=== PATIENT | female | born 1985 ===

== ENCOUNTER 2023-03-05 19:32 | Emergency (ER) | payer SELFPAY ==
[2023-03-05 19:42] VITALS: BMI 23.3
[2023-03-05 20:06] LABS: Basophils % 0.3 %; Eosinophils # 0.1 10^3/uL (0.0-0.8); Hematocrit 40.1 % (36-47); Lymphocytes # 3.9 10^3/uL (0.8-4.8); Lymphocytes % 28.9 %; Mean Corpuscular HGB Conc 33.9 g/dL (30-55); Mean Corpuscular Volume 88.5 fl (85-98); Mean Platelet Volume 10.1 fL (7.4-10.4); Monocytes # 0.7 10^3/uL (0.2-0.9); Monocytes % 5.4 %; Neutrophils # 8.69 10^3/uL (1.8-7.7); Neutrophils % 64.1 %; Nucleated Red Blood Cells % 0 %; Platelet Count 286 10^3/cmm (157-399); Red Blood Count 4.53 10^6/uL (3.85-5.65); Red Cell Distribution Width 11.9 % (12.1-15.1); White Blood Count 13.54 10^3/uL (3.29-11.43)
--- NOTE | 2023-03-05 20:19 | PC.NURSE ---
Dr. Lozano spoke with the pt. and at this time we are going to hold on changing her out into psych scrubs.
--- NOTE | 2023-03-05 20:20 | ED.C_ITS ---
HPI - Psych General: Chief Complaint: Psychiatric Symptoms Stated Complaint: SI,anxiety Time Seen by Provider: 03/05/23 19:43 History of Present Illness: Patient presents to the ER with complaints of suicidal ideation and anxiety. Patient is from [facility] and has been unable to get her medicine which sounds like Prozac and Klonopin for some time. Patient has been on varying doses of Prozac so she has not been totally out but she has been out of the [facility] medicine for some time. Patient states she has seen multiple telemedicine providers but they have not prescribed to her. Patient does states she has had suicidal thoughts but has no active plan. Upon further talking to the patient patient would just like a refill of her clonazepam and is not interested in inpatient treatment or trial of any other medicine. Review of Systems General: Reports: 10 or more systems reviewed and unremarkable except in HPI and below [facility] ED Female Reproductive History: Date of last menstrual period: 02/27/23 Physical Exam Const: COMMON NORMALS: no acute distress, average body habitus, patient or iented x3, no limitations, healthy appearing, alert and well nourished HENMT: COMMON NORMALS: normocephalic, atraumatic, hearing grossly normal bi laterally, external ears normal, Normal external nose present and moist oral mucous membranes HEAD & SCALP: normocephalic and atraumatic NOSE: Normal external nose present EXTERNAL EAR: Yes external ears normal Eye: COMMON NORMALS: Equal, round and reactive pupils present, EOMs intact bilaterally, conjunctivae normal and no scleral icterus CONJUNCTIVA: Yes conjunctivae normal PUPIL: Yes Equal, round and reactive pupils present Neck/C-Spine: COMMON NORMALS: full ROM, no lymphadenopathy, supple, no meningeal signs, no JVD and Thyroid normal THYROID: Thyroid normal Lymph: LYMPHATIC: no lymphadenopathy noted Chest: COMMONS NORMALS: normal inspection of the chest and normal palpation of entire chest wall Resp: COMMON NORMALS: normal respiratory effort, No retractions, No use of accessory muscles and clear to auscultation bilaterally AUSCULTATION: clear to auscultation bilaterally Cardio: COMMON NORMALS: no JVD, regular rate, regular rhythm, S1 normal heart sound present, S2 normal heart sound present, No gallops present (Cardio), No clicks present (Cardio), No murmurs present (Cardio) and No rub (Cardio) RATE: regular rate RHYTHM: regular rhythm HEART SOUNDS: S1 normal heart sound present and S2 normal heart sound present GI: COMMON NORMALS: Normal to inspection, nondistended, normoactive bowel sounds present, Soft to palpation, non-tender and No hepatosplenomegaly present PALPATION: Yes Soft to palpation and Yes No hepatosplenomegaly present : COMMON NORMALS: Yes no CVA tenderness BLADDER/KIDNEY EXAM: Yes no CVA tenderness Back/Pelvis: COMMON NORMALS: no CVA tenderness Neuro: COMMON NORMALS: patient oriented x3 SENSORIUM/ORIENTATION: Yes alert MENINGEAL SIGNS: Yes no meningeal signs Course Vital Signs: Vital signs: Vital Signs Temperature 98.5 F 03/05/23 20:26 Pulse Rate 78 03/05/23 20:58 Respiratory Rate 16 03/05/23 20:58 Blood Pressure 140/70 03/05/23 20:58 Pulse Oximetry 98 03/05/23 20:58 Oxygen Delivery Me thod Room Air 03/05/23 20:26 MDM - Psych Medical Decision Making Dr. Tyler was consulted about this patient and he was vaguely familiar with her through the crisis center. I think the crisis center called him earlier today that she was wanting refills of her benzos. And wanted him to do a consult or something like that. She ended up making her way over here trying to get a refill. Dr. Tyler said he would have to do a formal evaluation and there is no guarantee of the benzos will be offered. It appears to me patient is more wanting refills because she is stating she has tried everything in the past such as hydroxyzine and buspirone and they did not work or made her too sleepy. Patient has not wanted to come inpatient as she has a job she must go to. Patient did state however we can refer her to an outpatient psychiatrist through the referral network and we will give her the information on [facility] that they will go to tomorrow. Differential Diagnosis Likely suicidal ideation, depression and acute anxiety; Unlikely acute psychosis, chronic schizophrenia, bipolar disorder or drug-induced psychotic disorder Medical Records I reviewed the patient's medical records. Lab Data I reviewed the patient's lab results. 03/05/23 20:00 03/05/23 20:00 Laboratory Results WBC 13.54 10^3/uL (3.29-11.43) H 03/05/23 20:00 RBC 4.53 10^6/uL (3.85-5.65) 03/05/23 20:00 Hgb 13.60 g/dL (11.27-16.99) 03/05/23 20:00 Hct 40.1 % (36-47) 03/05/23 20:00 MCV 88.5 fl (85-98) 03/05/23 20:00 MCH 30.0 pg (27-33) 03/05/23 20:00 MCHC 33.9 g/dL (30-55) 03/05/23 20:00 RDW 11.9 % (12.1-15.1) L 03/05/23 20:00 Plt Count 286 10^3/cmm (157-399) 03/05/23 20:00 MPV 10.1 fL (7.4-10.4) 03/05/23 20:00 Neut % (Auto) 64.1 % 03/05/23 20:00 Lymph % (Auto) 28.9 % 03/05/23 20:00 [place] % (Auto) 5.4 % 03/05/23 20:00 Eos % (Auto) 1.0 % 03/05/23 20:00 Baso % (Auto) 0.3 % 03/05/23 20:00 Neut # (Auto) 8.69 10^3/uL (1.8-7.7) H 03/05/23 20:00 Lymph # (Auto) 3.9 10^3/uL (0.8-4.8) 03/05/23 20:00 [place] # (Auto) 0.7 10^3/uL (0.2-0.9) 03/05/23 20:00 Eos # (Auto) 0.1 10^3/uL (0.0-0.8) 03/05/23 20:00 Baso # (Auto) 0.0 10^3/uL (0.0-0.1) 03/05/23 20:00 Nucleated RBC % (auto) 0 % 03/05/23 20:00 Nucleated RBCs # 0.0 /100WBC 03/05/23 20:00 Sodium 138 mmol/L (136-145) 03/05/23 20:00 Potassium 3.9 mmol/L (3.5-5.1) 03/05/23 20:00 Chloride 102 mmol/L (98-107) 03/05/23 20:00 Carbon Dioxide 24 mmol/L (22-29) 03/05/23 20:00 Anion Gap 15.9 (5-19) 03/05/23 20:00 BUN 10 mg/dL (6-20) 03/05/23 20:00 Creatinine 0.8 mg/dL (0.5-0.9) 03/05/23 20:00 GFR Calculation 80.7 mL/min (90-130) L 03/05/23 20:00 Glucose 96 mg/dL (65-115) 03/05/23 20:00 Calculated Osmolality 285 mOsm/kg (285-295) 03/05/23 20:00 Calcium 9.7 mg/dL (8.5-10.5) 03/05/23 20:00 Total Bilirubin 0.8 mg/dL (0.15-1.2) 03/05/23 20:00 AST 15 U/L (0-32) 03/05/23 20:00 ALT 11 U/L (0-33) 03/05/23 20:00 Alkaline Phosphatase 58 U/L (35-105) 03/05/23 20:00 Total Protein 7.8 g/dL (6.6-8.7) 03/05/23 20:00 Albumin 4.7 g/dL (3.5-5.2) 03/05/23 20:00 Globulin 3.1 g/dL (1.3-4.6) 03/05/23 20:00 Salicylates < 0.3 mg/dL (3-10) L 03/05/23 20:00 Acetaminophen < 5.0 ug/mL (10-30) L 03/05/23 20:00 Ethyl Alcohol < 10 mg/dL (0-10) 03/05/23 20:00 No radiology studies performed this visit Discharge Plan Discharge Patient Disposition: Home Clinical Impression: Acute anxiety Depression Qualifiers: Depression Type: major depressive disorder Major depression recurrence: recurrent Active/Remission status: currently active Major depression episode severity: moderate Qualified Code(s): F33.1 - Major depressive disorder, recurr ent, moderate Condition: Stable Discharge Orders: Discharge ED (Routine); Ordered 03/06/23 Ordered By: Kadeem Lozano Patient Instructions: Depression, Anxiety (ED), Suicide Prevention (ED) Activity Restrictions/Additional Instructions: Please contact [facility] first thing in the morning with the information that you received through the ER. You have been referred to case management for a consult to psychiatry. They usually do these first thing in the morning so anticipate a call from them tomorrow if you have not heard from them within 48 hours please give us a call back. Thank you Coding Level of Care Code ED [employer] for Kylah Santos
[2023-03-05 20:26] VITALS: BP 152/84; PULSE 80; RESP 16; TEMP 36.9; O2SAT 100
[2023-03-05 20:28] LABS: Acetaminophen < 5.0 ug/mL (10-30); Alanine Aminotransferase 11 U/L (0-33); Albumin Level 4.7 g/dL (3.5-5.2); Alcohol Level < 10 mg/dL (0-10); Alkaline Phosphatase 58 U/L (35-105); Anion Gap 15.9 (5-19); Aspartate Amino Transferase 15 U/L (0-32); Blood Urea Nitrogen 10 mg/dL (6-20); Calcium 9.7 mg/dL (8.5-10.5); Carbon Dioxide 24 mmol/L (22-29); Chloride 102 mmol/L (98-107); Globulin 3.1 g/dL (1.3-4.6); Glomerular Filtration Rate 80.7 mL/min (90-130); Glucose 96 mg/dL (65-115); Osmolality Calculated 285 mOsm/kg (285-295); Potassium 3.9 mmol/L (3.5-5.1); Salicylate < 0.3 mg/dL (3-10); Sodium 138 mmol/L (136-145); Total Bilirubin 0.8 mg/dL (0.15-1.2); Total Protein 7.8 g/dL (6.6-8.7)
[2023-03-05] MEDS: LORazepam 1 mg Tablet PO (20:35)
[2023-03-05 20:58] VITALS: BP 140/70; PULSE 78; RESP 16; O2SAT 98
--- NOTE | 2023-03-06 07:58 | PC.SOCIAL ---
[facility] Referral Referral message to [facility] at this time. Clinic to contact patient with appt date/time.
== END 2023-03-05 21:00 | disposition home or self-care (01) ==
PROVIDERS: Emergency Provider Emergency Medicine
DX: F41.9 Anxiety disorder, unspecified (principal); F33.1 Major depressive disorder, recurrent, moderate
CPT/HCPCS: 36415; 80053; 80307; 85025; 99283